=== PATIENT | male | born 2000 | race Caucasian/White ===

== ENCOUNTER 2023-03-02 18:18 | Emergency (ER) | payer SELFPAY ==
[2023-03-02] MEDS ORDERED: Ondansetron 4 MG/2 ML SDV IVPUSH ONE (19:05)
[2023-03-02] MEDS ORDERED: Lactated Ringers 1,000 ML IV SCH (19:15)
[2023-03-02] MEDS ORDERED: Ketorolac 30 MG/ML SDV IVPUSH ONE (19:31)
[2023-03-02] MEDS ORDERED: Acetaminophen 325 MG Tab PO ONE (19:31)
[2023-03-02 20:19] LABS: BASOPHILS PERCENT AUTO 0.1 % (0.0-1.5); HEMOGLOBIN 14.9 g/dL (13.0-17.0); LYMPHOCYTES PERCENT AUTO 5.8 % (16.0-40.0); MEAN CORPUSCULAR HEMOGLOBIN 29.8 pg (27.0-32.0); MEAN CORPUSCULAR HGB CONC 34.7 g/dL (31.0-37.0); MONOCYTES ABSOLUTE AUTO 0.7 K/uL (0.0-0.8); MONOCYTES PERCENT AUTO 4.3 % (0.0-15.0); NEUTROPHILS ABSOLUTE AUTO 15.4 K/uL (1.4-5.7); NEUTROPHILS PERCENT AUTO 89.8 % (48.0-80.0); NRBC ABSOLUTE 0 K/uL; PLATELET COUNT,PLT 254 K/uL (150-400); WHITE BLOOD CELL COUNT,WBC 17.14 K/uL (4.0-11.0)
[2023-03-02] MEDS ORDERED: cefTRIAXone 500 MG in Lidocaine 1% 1 ML IM ONE (20:26)
[2023-03-02] MEDS ORDERED: Doxycycline 100 MG Cap PO ONE (20:26)
[2023-03-02 21:01] LABS: A/G RATIO 1.2 (0.9-1.6); ALBUMIN 4.6 g/dL (3.4-5.0); BILIRUBIN TOTAL 0.3 mg/dL (0.2-1.0); CALCIUM 9.5 mg/dL (8.5-10.1); CARBON DIOXIDE,CO2 22.9 mmol/L (21.0-32.0); CREATININE 1.1 mg/dL (0.8-1.3); EST CRCL DRUG DOSING (CG) 103.64 mL/min; POTASSIUM,K 3.7 mmol/L (3.5-5.1); PROTEIN TOTAL,TP 8.3 g/dL (6.4-8.2)
[2023-03-02 21:17] LABS: APPEARANCE,URINE CLEAR; BILIRUBIN,URINE NEGATIVE (NEGATIVE); COLOR,URINE YELLOW; GLUCOSE,URINE NEGATIVE (NEGATIVE); KETONES,URINE >=80 mg/dL (NEGATIVE); LEUKOCYTE ESTERASE,URINE NEGATIVE (NEGATIVE); NITRITE,URINE NEGATIVE (NEGATIVE); OCCULT BLOOD,URINE SMALL (NEGATIVE); PROTEIN,URINE NEGATIVE (NEGATIVE); UROBILINOGEN,URINE 0.2 EU/dL (<2.0)
[2023-03-02 21:23] LABS: BACTERIA,URINE OCCASIONAL (NEGATIVE); EPITHELIAL CELLS,URINE OCCASIONAL (NONE-FEW); MUCUS,URINE OCCASIONAL (NONE-MOD); SQUAMOUS EPITHELIAL CELLS,UR OCCASIONAL; WBC,URINE NONE SEEN (0-5/HPF)
[2023-03-02 22:51] LABS: C. TRACHOMATIS BY PCR NOT DETECTED; N. GONORRHOEAE BY PCR NOT DETECTED
== END 2023-03-02 22:18 | disposition home or self-care (01) ==
LOC: MW.ED 18:18
DX: N45.1 Epididymitis (principal)
CPT/HCPCS: 36415; 76870; 80053; 81001; 83690; 85025; 87491; 87591; 93976; 96361; 96372; 96374; 96375; 99284; A9270; J0696; J1885; J2405; J7120; J3490